=== PATIENT | female | born 1965 | race Caucasian/White ===

== ENCOUNTER 2016-12-24 07:09 | Emergency (ER) | payer OTHER ==
[2016-12-24 07:18] VITALS: BP 140/88
--- NOTE | 2016-12-24 08:00 | UC ---
Back Pain HPI - HPI Summary HPI Summary: The patient comes in today for: 1. Back pain: Onset: 2 days ago. It was "irritated" in the AM and it got worse during the day. Palliative/provocative: Movement makes it worse such as flexion of the left hip. Quality: Sharp, and throbbing. Region: Left lower back. Severity: Rest: 3/10 but with movement 6/10 Time: Constant. Associated symptoms: Injury: None. Activities: Nothing different than usual. Previous disease: She has a history of a herniated disk, "lower spine." Fevers/infections: None. Bowel/bladder incontinence: None. Cancer/unexpected weight loss: NOne. Previous treatment: She took a Flexeril last night, and 800 of Ibuprofen this at 5:30 AM--no help. When she had pain before she just "dealt with it." * - History of Current Complaint Chief Complaint: UCBackPain Stated Complaint: BACK PAIN Time Seen by Provider: 12/24/16 07:54 Hx Obtained From: Patient - Allergies/Home Medications Allergies/Adverse Reactions: Allergies Allergy/AdvReac Type Severity Reaction Status Date / Time Penicillins [PCN] Allergy Rash Verified 12/24/16 07:18 Home Medications: Home Medications Finasteride TAB* [Proscar TAB*] 1 mg PO DAILY 12/24/16 [History Confirmed ] Ibuprofen TAB* [Motrin TAB* 800 MG] 800 mg PO TID PRN 12/24/16 [History Confirmed 12/24/16] PMH/Surg Hx/FS Hx/Imm Hx Previously Healthy: No - Hair loss, "hot flashes." - Surgical History Surgical History: Yes Surgery Procedure, Year, and Place: HYSTERECTOMY; BLADDER SLING; TUMMY TUCK; C- SECTION; GALLBLADDER REMOVAL - Family History Known Family History: Positive: Cardiac Disease - mother CT@late 60s, father CT @ 36. Sister unspec. heart problems Negative: Diabetes - Social History Occupation: Employed Full-time Alcohol Use: Occasionally Substance Use Type: None Smoking Status (MU): Never Smoked Tobacco Review of Systems Constitutional: Negative Skin: Negative Eyes: Negative ENT: Negative Respiratory: Negative Cardiovascular: Negative Gastrointestinal: Negative Genitourinary: Negative All Other Systems Reviewed And Are Negative: Yes Physical Exam Triage Information Reviewed: Yes Appearance: Well-Appearing, No Pain Distress - She gets on the examination table with no marked psychomotor slowing or guarding., Well-Nourished Vital Signs: Initial Vital Signs Temp 96.9 F 12/24/16 07:15 Pulse 86 12/24/16 07:15 Resp 16 12/24/16 07:15 BP 140/88 12/24/16 07:15 Pulse Ox 100 12/24/16 07:15 Vital Signs Reviewed: Yes Eyes: Positive: Conjunctiva Clear. Negative: Discharge ENT: Positive: Hearing grossly normal. Negative: Pharyngeal erythema, Nasal congestion, Nasal drainage, TM bulging, TM dull, TM red, Tonsillar swelling, Tonsillar exudate Dental: Negative: Gross Decay/Caries @, Dental Fracture @ Neck: Positive: Supple, Nontender, No Lymphadenopathy. Negative: Nuchal Rigidity Respiratory: Positive: Lungs clear, No respiratory distress, No accessory muscle use. Negative: Crackles, Wheezing Cardiovascular: Positive: RRR, No Murmur Abdomen Description: Positive: Nontender, No Organomegaly, Soft. Negative: Distended, Guarding Musculoskeletal: Positive: Strength Intact, Other: - Back: She has tenderness to palpation of the left lumbar paraspinous musculature as well as over the piriformis muscle. She is able to fully extend her left leg though at full extension, there is some increase in the pain of the left lower back. DTR are 2 +/2 x 2 for the patellar, and 1+/2 x 2 for the Achilles. Neurological: Positive: Alert, Muscle Tone Normal Psychological: Positive: Age Appropriate Behavior, Consolable Skin: Negative: rashes, breakdown Back Pain Course/Dx - Differential Dx/Diagnosis Provider Diagnoses: Lower back pain (musculoskeletal). Piriformis syndrome ( left) Discharge - Discharge Plan Condition: Stable Disposition: HOME Patient Education Materials: Low Back Strain (ED) Forms: *Work Release Referrals: Roxann Rogers MD [Primary Care Provider] - 1 Week (Please see your primary care provider in a week to see how well you are doing. If you get worse, please be seen sooner in the ER or through us.)
== END 2016-12-24 08:20 | disposition home or self-care (01) ==
LOC: UCEAST 07:09
DX: G57.00 Lesion of sciatic nerve, unspecified lower limb (principal)
CPT/HCPCS: 99212; G0463

== ENCOUNTER 2017-08-30 17:29 | Emergency (ER) | payer OTHER ==
[2017-08-30 17:53] VITALS: BP 139/87
--- NOTE | 2017-08-30 18:07 | UC ---
Abdominal Pain Female HPI - HPI Summary HPI Summary: 51 YO WF presents with vomiting for the last 2 days. She tells me that her vomiting began spontaneously 2 days ago. Since that time she has tried to eat crackers or soup, but will vomit minutes later. She is also unable to tolerate water or other liquids without vomiting. Denies fever, chills, SOB, chest pain, or diarrhea. 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 Sister unspec. heart problems Negative: Diabetes - Social History Occupation: Employed Full-time Lives: With Family Alcohol Use: Occasionally Substance Use Type: None Smoking Status (MU): Never Smoked Tobacco Review of Systems Constitutional: Negative Skin: Negative Respiratory: Negative Cardiovascular: Negative Gastrointestinal: Vomiting, Nausea Genitourinary: Negative Musculoskeletal: Negative Neurological: Negative Psychological: Negative All Other Systems Reviewed And Are Negative: Yes Physical Exam Triage Information Reviewed: Yes Appearance: No Pain Distress, Ill-Appearing Vital Signs: Initial Vital Signs Temp 97.4 F 08/30/17 17:50 Pulse 81 08/30/17 17:50 Resp 16 08/30/17 17:50 BP 139/87 08/30/17 17:50 Pulse Ox 98 08/30/17 17:50 Vital Signs Reviewed: Yes ENT: Positive: Hearing grossly normal, Pharynx normal, TMs normal, Uvula midline. Negative: Pharyngeal erythema, Nasal congestion, Nasal drainage, TM bulging, TM dull, TM red, Tonsillar swelling, Tonsillar exudate, Hoarse voice, Sinus tenderness Neck: Positive: Supple, Nontender, No Lymphadenopathy Respiratory: Positive: Lungs clear, Normal breath sounds, No respiratory distress, No accessory muscle use Cardiovascular: Positive: RRR, No Murmur, Pulses Normal Abdomen Description: Positive: No Organomegaly, Soft, Guarding - RLQ, McBurney' s Point Tenderness, Other: - Positive heel strike. Negative obturator.. Negative: CVA Tenderness (R), CVA Tenderness (L), Distended, Peritoneal Signs Bowel Sounds: Positive: Present Neurological: Positive: Fatigued Psychological: Positive: Age Appropriate Behavior Skin: Negative: rashes Abd Pain Female Course/Dx - Course Course Of Treatment: She was given 4mg po zofran in the clinic and advised to seek further evaluation in the ED. I suspect she may have appendicitis vs viral gastroenteritis. - Differential Dx/Diagnosis Provider Diagnoses: Vomiting. RLQ pain Discharge - Discharge Plan Condition: Stable Disposition: OTHER Discharge Disposition Comment: To [facility] by private car Referrals: Roxann Rogers MD [Primary Care Provider] - Additional Instructions: Please report to [facility] ED for further evaluation of your vomiting and RLQ pain
[2017-08-30] MEDS ORDERED: Ondansetron ODT TAB* 4 MG PO ONE (18:11)
[2017-08-30] MEDS ORDERED: Ondansetron ODT TAB* 4 MG ONE (18:13)
== END 2017-08-30 18:20 ==
LOC: UCEAST 17:29
DX: R10.31 Right lower quadrant pain (principal); R11.10 Vomiting, unspecified; I10 Essential (primary) hypertension; Z88.0 Allergy status to penicillin
CPT/HCPCS: 99212; A9270-GY; G0463